=== PATIENT | male | born 1950 | race Caucasian/White ===

== ENCOUNTER 2025-06-21 06:48 | Emergency (ER) | payer MEDICARE, MEDICAID ==
[~2025-06-21] VITALS: Ht 185.4 cm; Wt 67.3 kg
--- NOTE | 2025-06-21 07:03 | Physician Documentation ---
History of Present Illness General Chief Complaint: Mechanical Fall Stated Complaint: FALL Time Seen by : 07:03 History of Present Illness Initial Comments 74-year-old male who has a end-stage kidney and liver disease states he slid off his bed and fell to the ground today. He states he did not strike his head. He does complain of some tailbone pain. The patient denies any loss of c onsciousness. The patient denies any chest pain. Patient states he has been short of breath he has had bilateral pleural effusions and he was told yesterday that he has a pneumonia. The patient complains of some mild tailbone pain. Patient is on Eliquis but states he did not strike his head. Patient states he is on antibiotics for foot infections. Inpatient states he is chronically on oxygen and he is chronically short of breath. He states he gets dialysis 4 times a week states his next dialysis is tomorrow he states he has a dialysis yesterday. Medication Reconciliation Allergies: Coded Allergies: No Known Allergies (Unverified , 06/21/25) Past Medical History Past Medical History: Liver Failure, Dialysis Review of Systems All Other Systems at this time: Reviewed and Negative Physical Exam Physical Exam Vital Signs: Heart Rate: 60, Respiratory Rate: 19, BP: 89/47, Pulse Oximetry: 98, Weight: 67.300 Oxygen Flow Rate: 2.0 Physical Exam VITALS: Reviewed and as above. GENERAL: Alert, no apparent distress. Chronically ill-appearing HEENT: Normocephalic, atraumatic, PERRL, EOMI, dry mucosa, no erythema RESPIRATORY: Diminished breath sounds bilaterally no significant distress CHEST: No accessory muscle use, no retractions CV: Regular rate, rhythm, no edema, no murmur, No: JVD GI: Soft, non-tender, bowels sounds present, no rebound, guarding, or rigidity BACK: No CVA tenderness, or swelling MUSCULOSKELETAL: No deformities, no edema SKIN: Warm and dry, no rash NEURO: Oriented x4, No motor or sensory deficit PSYCH: Normal mood and affect, no agitation Progress Results/Orders Results/Orders Orders - OHLLIV CONNER MD Chest,Single View (06/21/25 07:25) Sacrum & Coccyx (06/21/25 ) Lumbar Spine Limited (06/21/25 ) Completed Orders - OHLIV KHAN MD Chest,Single View (06/21/25 07:25) Sacrum & Coccyx (06/21/25 ) Lumbar Spine Limited (06/21/25 ) Vital Signs 06/21/25 06/21/25 06/21/25 06/21/25 06:49 06:59 06:59 08:12 Pulse 79 60 60 Resp 20 19 19 20 B/P (MAP) 101/59 89/47 (61) 102/53 (69) Pulse Ox 100 98 100 O2 Flow Rate 2.0 2.0 2.0 06/21/25 09:13 Pulse 60 Resp 18 B/P (MAP) 110/59 Pulse Ox 100 EKG/XRAY/CT/US/VASC/MRI Chest X-Ray : Additional Comments Patient: BARYAN CAMPOS Medical Record: [id number] [facility] : 1950, Age: 74 Sex: Male Location: ER Patient Status: [facility] ER Service Date/Time: 06/21/25724 Ordering Physician: LIV RODRIGUEZ MD Exam: CHEST,SINGLE VIEW CHEST RADIOGRAPH Indication: sob Technique: Single frontal view of the chest was obtained Comparison: None FINDINGS: Lines and Tubes: None Lungs: No focal consolidation. Pleura: Small bilateral pleural effusions No pneumothorax. Cardiomediastinal contours: Cardiomegaly Bones: Unremarkable IMPRESSION: Cardiomegaly with CHF. Small bilateral pleural effusions Electronically Signed by:PATRICIO GRUBBS MD Date & Time: 06/21/2534 Dictated by: PATRICIO GRUBBS MD Dictation date and time: 06/21/25 075 Primary Care Provider: NO PRIMARY CARE PROVIDER cc: LIV RODRIGUEZ MD ~ Bone/Soft Tissue X-Ray (Spine) : Additional Comment INDICATION: FALL COMPARISON: None TECHNIQUE: 2 views of the lumbar spine were obtained. FINDINGS: The lumbar vertebral alignment is normal. Multilevel degenerative changes most severe L4-L5 through L5-S1 causing moderate to severe neural foraminal and spinal canal stenosis No acute fracture, vertebral compression deformity or aggressive osseous lesions. The paravertebral soft tissues are grossly unremarkable. IMPRESSION: No acute fracture or subluxation. Electronically Signed by:PATRICIO GRUBBS MD Date & Time: 06/21/25831 Dictated by: PATRICIO GRUBBS MD Dictation date and time: 06/21/25831 Primary Care Provider: NO PRIMARY CARE PROVIDER cc: LIV RODRIGUEZ MD ~ Bone/Soft Tissue X-Ray (Ext.) : Additional Comment Patient: BRAYAN CAMPOS Medical Record: [id number] [facility] : 1950, Age: 74 Sex: Male Location: ER Patient Status: REG ER Service Date/Time: 06/21/25 Ordering Physician: LIV RODRIGUEZ MD Exam: SACRUM & COCCYX EXAM: DI SACRUM COCCYX CLINICAL INDICATION: sob TECHNIQUE: DI SACRUM COCCYX Comparison: None FINDINGS/IMPRESSION: Right total hip arthroplasty. Surgical pins in the left hip. Severe osteopenia. CT recommended. No displaced fracture. No sacral fusion or sacroiliitis Electronically Signed by:PATRICIO GRUBBS MD Date & Time: 06/21/25832 Dictated by: PATRICIO GRUBBS MD Dictation date and time: 06/21/25832 Primary Care Provider: NO PRIMARY CARE PROVIDER cc: LIV RODRIGUEZ MD ~ Medical Decision Making Findings 74-year-old male with multiple chronic illnesses who presents after a ground level fall where he states he slid down on to his buttocks there is no significant tenderness on exam the patient has no deformity to his back on exam the patient's x-rays were reviewed by myself his plain film lumbar spine films were interpreted as showing normal bony alignment no fracture or dislocation or subluxation was appreciated. I have also reviewed the radiologist's interpretation and agree with their interpretation I have also reviewed that his coccyx films as well as his chest x-ray his chest x-ray was independently reviewed by myself which demonstrated a small pleural effusions and slight cardiomegaly the patient has a normal-appearing bony structures in his chest x- ray was independently interpreted by me as showing pleural effusions. I have reviewed the radiologist's interpretation and agree with the interpretation the patient has been advised to return for worsening of his symptoms and uses pain medication as needed the patient will follow up tomorrow in dialysis. Patient's EKG by me as being a paced rhythm 60 with a right axis deviation and nonspecific ST abnormalities interpreted as an abnormal EKG Departure Disposition: HOME / SELF CARE / HOMELESS Impression: Primary Impression: Fall Qualified Codes: W19.XXXA - Unspecified fall, initial encounter Additional Impression: Back pain Qualified Codes: M54.50 - Low back pain, unspecified Discharge Instructions: Fall Prevention in the Home, Adult, [id number] Referrals: NO PRIMARY CARE PROVIDER (PCP) Signature Scribe Signature: no scribe Attestation: The note accurately reflects work and decisions made by me.Liv Rodriguez MD 06/22/25 17:05 LIV RODRIGUEZ MD Jun 21, 2025 07:03
--- NOTE | 2025-06-21 08:34 | RADIOLOGY REPORT ---
INDICATION: FALL COMPARISON: None TECHNIQUE: 2 views of the lumbar spine were obtained. FINDINGS: The lumbar vertebral alignment is normal. Multilevel degenerative changes most severe L4-L5 through L5-S1 causing moderate to severe neural for aminal and spinal canal stenosis No acute fracture, vertebral compression deformity or aggressive osseous lesions. The paravertebral soft tissues are grossly unremarkable. IMPRESSION: No acute fracture or subluxation.
--- NOTE | 2025-06-21 08:35 | RADIOLOGY REPORT ---
EXAM: DI SACRUM COCCYX CLINICAL INDICATION: sob TECHNIQUE: DI SACRUM COCCYX Comparison: None FINDINGS/IMPRESSION: Right total hip arthroplasty. Surgical pins in the left hip. Severe osteopenia. CT recommended. No displaced fracture. No sacral fusion or sacroiliitis
--- NOTE | 2025-06-21 08:36 | RADIOLOGY REPORT ---
CHEST RADIOGRAPH Indication: sob Technique: Single frontal view of the chest was obtained Comparison: None FINDINGS: Lines and Tubes: None Lungs: No focal consolidation. Pleura: Small bilateral pleural effusions No pneumothorax. Cardiomediastinal contours: Cardiomegaly Bones: Unremarkable IMPRESSION: Cardiomegaly with CHF. Small bilateral pleural effusions
[2025-06-21 09:13] VITALS: BP 110/59; PULSE 60; RESP 18; O2SAT 100
--- NOTE | 2025-06-21 16:32 | ELECTROCARDIOGRAPH REPORT ---
[facility] Test Date: 2025-06-21 Test Time: 06:57:19 Pat Name: BRAYAN CAMPOS Department: EMERGENCY ROOM Room: Gender: M [employer]: MEGAN : 1950 Requested By: DEPARTMENT EMERGENCY Order Number: [id number] Reading MD: Measurements Intervals [place] Rate: 60 P: 0 VA: 170 QRS: 119 QRSD: 166 T: 54 QT: 641 QTc: 641 Interpretive Statements Ventricular-paced complexes No further rhythm analysis attempted due to paced rhythm Nonspecific intraventricular conduction delay Abnormal lateral Q waves Probable anteroseptal infarct, recent Baseline wander in lead(s) V4 Please click the below link to view image of tracing.
== END 2025-06-21 09:15 | disposition home or self-care (01) ==
LOC: ER 06:49
DX: M54.9 Dorsalgia, unspecified (principal); I50.9 Heart failure, unspecified; R06.02 Shortness of breath; W19.XXXA Unspecified fall, initial encounter; Y93.89 Activity, other specified; Y92.89 Other specified places as the place of occurrence of the external cause; Y99.8 Other external cause status
CPT/HCPCS: 71045; 72100; 72220; 93005; 99284